=== PATIENT | female | born 1995 | race American Indian/Alaskan Native ===

== ENCOUNTER 2017-08-12 20:19 | Inpatient (IN) | payer MEDICAID ==
[2017-08-12] MEDS ORDERED: Lidocaine 1% 30 ML SDV INJECT PRN (21:31)
[2017-08-12] MEDS ORDERED: Acetaminophen 325 MG Tab PO PRN (21:31)
[2017-08-12] MEDS ORDERED: Lactated Ringers 500 ML IV ONE (21:31)
[2017-08-12] MEDS ORDERED: Misoprostol 400 MCG (4 X 100 MCG TAB) RECTAL PRN (21:31)
[2017-08-12] MEDS ORDERED: Sodium Chloride 0.9% 10 ML Syringe FLUSH PRN (21:31)
[2017-08-12] MEDS ORDERED: Carboprost Tromethamine 250 MCG/1 ML Amp IM PRN (21:31)
[2017-08-12] MEDS ORDERED: Methylergonovine 0.2 MG/1 ML Amp IM PRN (21:31)
[2017-08-12] MEDS ORDERED: Ondansetron 4 MG/2 ML SDV IV PRN (21:31)
[2017-08-12] MEDS: Lactated Ringers 1,000 ML IV SCH (21:50)
[2017-08-12] MEDS: Oxytocin/Normal Saline 30 UNIT/500 ML BAG IV SCH (22:45)
[2017-08-13] MEDS: Lactated Ringers 1,000 ML IV SCH ×3 (07:45→21:21)
[2017-08-13] MEDS: fentaNYL 100 MCG/2 ML SDV IVPUSH PRN ×3 (08:53→10:31)
[2017-08-13] MEDS ORDERED: cefTRIAXone 1 GM AdvVial IV ONE (11:31)
[2017-08-13] MEDS ORDERED: Sodium Chloride 0.9% 50 ML ONE (11:32)
[2017-08-13] MEDS ORDERED: cefTRIAXone 1 GM in Sodium Chloride 0.9% 50 ML IV ONE (12:00)
[2017-08-13] MEDS ORDERED: Oxytocin 10 Units/1 ML SDV IM PRN (12:38)
[2017-08-13] MEDS ORDERED: Benzocaine/Menthol 20%-0.5% Spray 56 GM Canister TOP PRN (12:38)
[2017-08-13] MEDS ORDERED: Simethicone 80 MG Tab.Chew PO PRN (12:38)
[2017-08-13] MEDS ORDERED: Sodium Chloride 0.9% 10 ML Syringe FLUSH PRN (12:38)
[2017-08-13] MEDS ORDERED: Zolpidem 5 MG Tab PO PRN (12:38)
[2017-08-13] MEDS ORDERED: Measles, Mumps & Rubella Vaccine 0.5 ML SDV SUBCUT ONE (12:38)
[2017-08-13] MEDS: Ibuprofen 800 MG Tab PO PRN (19:37)
[2017-08-13] MEDS: Oxytocin/Normal Saline 30 UNIT/500 ML BAG IV SCH (20:32)
[2017-08-14] MEDS: Ibuprofen 800 MG Tab PO PRN ×2 (08:40→20:52)
[2017-08-14] MEDS: Ferrous Sulfate 325 MG Tab PO SCH (08:40)
[2017-08-14] MEDS: Prenatal Multivitamin with Calcium/Folic Acid/Iron Tab PO SCH (08:40)
[2017-08-14] MEDS: Docusate Sodium 100 MG Cap PO PRN ×2 (08:40→20:52)
[2017-08-14] MEDS ORDERED: cefTRIAXone 1 GM in Sodium Chloride 0.9% 50 ML IV ONE (12:00)
[2017-08-15] MEDS: Ibuprofen 800 MG Tab PO PRN (08:55)
[2017-08-15] MEDS: Prenatal Multivitamin with Calcium/Folic Acid/Iron Tab PO SCH (08:55)
[2017-08-15] MEDS: Ferrous Sulfate 325 MG Tab PO SCH (08:55)
[2017-08-15] MEDS: Docusate Sodium 100 MG Cap PO PRN (08:55)
[2017-08-15 09:15] VITALS: BP 116/87
--- NOTE | 2017-08-15 09:25 | HP ---
PATIENT IDENTIFICATION: Marge Guadarrama is a 21-year-old G2, P1-0-0-1, intrauterine at 40-2/7 weeks by 32-6/7 weeks' ultrasound, who presents with headaches. HISTORY OF PRESENT ILLNESS: The patient states she started having a headache this afternoon in frontal portion of her head and down into her face region, rated 5 to 6/10, described as bearable, minimally better with Tylenol upon admission, and is noted to having increasing blood pressures this last week being followed in the clinic. To put this in context, she is GBS negative. She has had some occasional contractions, but nothing increasing in frequency or intensity. Records were called for, reviewed as below, and supplemented by the patient's history. OBSTETRIC HISTORY: 08/01/2016, delivered at 40-1/7 weeks a 4054 g female, spontaneous vaginal delivery. ANTEPARTUM LABS: ABO blood type O positive, negative antibody. Rubella nonimmune. Syphilis antibody is nonreactive. Negative hepatitis B surface antigen, HIV, GC and Chlamydia. Wet prep originally had trichomoniasis that has cleared with treatment back in May, and in June, there was wet prep with fungal and budding yeast with recommendation for [id number] yeast treatment. Last hemoglobin was 10.5 with platelets 165, and GBS was negative in third trimester. ALLERGIES: None. MEDICATIONS: vitamins. PAST MEDICAL/PAST SURGICAL HISTORY: Remarkable for nondisplaced linear fracture of the left fourth digit in the past, depression, Chlamydia in 11/2015 with UTI, and chickenpox as a child. SOCIAL HISTORY: Lives in [place] with grandmother and sister. No pets. Unemployed. Father of baby, Guido Oneill, is involved and healthy without medical problems. She denies any tobacco, alcohol, or drug use. FAMILY HISTORY: Breast cancer in maternal grandmother as well as heart disease. Negative family history of defects, anesthesia problems, bleeding problems, or thyroid disease. REVIEW OF SYSTEMS: The patient denies any visual changes or upper abdominal pain, spotting, bleeding, or leaking. She has had some increasing discharge recently. Otherwise, review of systems fully reviewed and felt to be noncontributory. OBJECTIVE: Vital Signs: Blood pressure 132/94, heart rate 70, temperature 98.2. Recheck blood pressures 120/75, 126/82, and 142/102. Appearance: Female appears her stated age, acting appropriate for age, nontoxic appearance. HEENT: Head is atraumatic. EOMs intact. PERRLA. No scleral icterus. No obvious otorhinorrhea. Mucous membranes are moist. Neck: No obvious tenderness. Lungs: Clear to auscultation bilaterally. No increased work of breathing. Heart: S1 and S2. Regular rate and rhythm. Abdomen: Gravid, Robert's indeterminate, nontender, and nondistended. Bowel sounds positive. No other organomegaly, pulsatile masses, or obvious hernias. No rebound, rigidity, or guarding with monitors applied. Genitourinary: Normal external female genitalia. Normal position and presentation of urethra. Vaginal exam reveals her to be -3 station, 3+ cm, 50% to 60% effaced, vertex suspected. Bag of water felt. Extremities: Trace pedal edema. Deep tendon reflexes are 3 to 4/4 bilaterally and symmetric in lower extremities. Psychiatric: Mood and affect are congruent. Judgment and insight are intact. SKIN: Without cyanosis, clubbing, or jaundice. LABORATORY DATA: Pending are [facility] labs as well as urinalysis and urine protein- creatinine ratio. heart tone baseline has been around the 125 to 130 range and felt to be reactive and reassuring. NST was done and was reactive. ASSESSMENT: 1. Intrauterine at 40-2/7 weeks by 32-6/7 weeks's ultrasound. 2. Gestational hypertension versus preeclampsia with mild headache. I doubt this is a headache related to preeclampsia. She was given some Tylenol with mild relief. We will follow closely. 3. Rubella nonimmune. 4. Group B Streptococcus negative. 5. Trichomoniasis in , treated in 05/2017. 6. History of yeast infection in the third trimester, suspect treated. 7. Maternal anemia history. We will check CBC. 8. 2, para 1-0-0-1. PLAN: The patient has gestational hypertension versus preeclampsia. The patient will be admitted. Start Pitocin augmentation/induction. Consider artificial rupture of membranes in the future and following closely. The patient understands and agrees with the above treatment plan. We will follow for any signs or symptoms of severe preeclampsia including, but not limited to, worsening headache and lab abnormalities that would be concerning for severe preeclampsia, or otherwise. May need magnesium and labetalol, and this was discussed with the patient, but we will follow closely at this point in time. There are no indications for this as she has had a mild headache and her blood pressures are not in the nonsevere range at this point in time. [facility] /[id number]
--- NOTE | 2017-08-15 10:01 | OBOUT ---
DATE: 08/12/2017 DATE AND TIME OF NST: 08/12/2017 at 2110 hours to 2130 hours. REASON FOR NST: 1. Intrauterine at 40-2/7 weeks by 32-6/7 weeks' ultrasound. 2. Gestational hypertension versus preeclampsia with mild headache. 3. Rubella nonimmune. 4. Group B Streptococcus negative. 5. Trichomoniasis in , treated in 05/2017, negative thereafter. 6. History of maternal anemia. 7. 2, para 1-0-0-1. NST INTERPRETATION: During this time period, heart tone baseline is approximately 125 and there are at least two 15 x 15 beat per minute accelerations making this strip reactive. It is also noted to be reassuring. Tocometer reveals potential 2 contractions felt by patient. VITAL SIGNS: Blood pressure 145/101, recheck 127/82. ASSESSMENT: 1. Nonstress test, reactive and reassuring. 2. Tocometer with contractions. PLAN: Please see admit history and physical for further details. The patient has had some elevated blood pressures with history of increasing blood pressures in the past. HELLP labs will be drawn. The patient will be admitted. We will consider induction of labor. Please see further dictation for further details. [facility] /[id number]
--- NOTE | 2017-08-15 10:13 | PN ---
DATE: 08/13/2017 SUBJECTIVE: The patient denies any headaches, visual changes, or upper abdominal pain. She is breathing through her contractions and deferring something for pain at this point in time. OBJECTIVE: Vital Signs: Blood pressure 125/89, recheck 138/71. Gynecologic: Tocometer reveals contractions every 1.5 to 2 minutes. Pitocin is at 10 milliunits/minute. heart tones in the 130s range and felt to be reassuring. Vaginal: Exam reveals her to be 4 cm, 75% effaced, -1 station, vertex suspected, and artificial rupture of membranes done after discussion with the patient yielding copious amounts of clear fluid. ASSESSMENT: Intrauterine at 40 and 2/7 weeks by 32 and 6/7-week ultrasound with gestational hypertension. HELLP labs were essentially negative with a protein-creatinine ratio being 0.13. She had a headache last night upon admission, this has resolved. In addition, she has gestational thrombocytopenia and platelets of 133,000. PLAN: As the patient continues to have cervical dilation, artificial rupture of membranes was done as above and will continue to follow clinically and closely. No signs or symptoms of severe preeclampsia noted at this point in time. [facility] /[id number]
--- NOTE | 2017-08-15 10:19 | PN ---
DATE: 08/14/2017 day #1 status post spontaneous vaginal delivery with retained placenta, requiring bimanual and finger uterine curettage as well as banjo curettage with hemorrhage with an EBL of 1200 mL with prolonged third stage of labor. SUBJECTIVE: The patient has been tolerating POs, ambulating, urinating, passing flatus. Denies any chest pain, shortness of breath, lightheadedness or other signs and symptoms of anemia. OBJECTIVE: Vital Signs: Temp 98, heart rate 67, blood pressure 118/75, respiratory rate 16. I's and O's have been adequate. Lungs: Clear to auscultation bilaterally. Heart: S1 and S2. Regular rate and rhythm. Pelvic: Firm uterus, -1 below umbilicus. Extremities: No peripheral edema. No calf pain. LABORATORY DATA: Today reveal white cell count of 12.5, hemoglobin 6.6, dropped from predelivery hemoglobin of 10.2, and last night's hemoglobin 7.7, platelets 93,000 dropped from 133,000 pre delivery and 101,000 last night. Pending is a CBC at around 1300 hours. ASSESSMENT: 1. day #1 status post spontaneous vaginal delivery with the above complications noted with hemorrhage with EBL 1200 mL with anemia of acute blood loss, hemoglobin dropping down to 6.6. We will continue to follow closely for signs and symptoms of anemia. Recheck CBC at 1300 hours. 2. Gestational thrombocytopenia with platelets decreasing. Did discuss following closely with a CBC as well. The patient denies any significant amount of vaginal bleeding at this point in time and we will follow closely. I did discuss with patient potential need for blood transfusion. Risks, benefits, alternatives, and complications discussed with the patient and we will follow closely as well as with labs to see if she needs a blood transfusion. [facility] /[id number]
--- NOTE | 2017-08-15 10:31 | DEL ---
DATE: 08/13/2017 PREOPERATIVE DIAGNOSES: 1. Intrauterine at 40 and 3/7 weeks by 32 and 6/7 week ultrasound. 2. Gestational hypertension with mild headache. 3. Rubella nonimmune. 4. Group B Streptococcus negative. 5. Trichomoniasis in , treated 06/15/2017. 6. History of yeast infection, suspected and treated. 7. Maternal anemia with hemoglobin 10.2. 8. 2 para 1-0-0-1. 9. Gestational thrombocytopenia with platelets of 132,000. POSTOPERATIVE DIAGNOSES: 1. Intrauterine at 40 and 3/7 weeks by 32 and 6/7 week ultrasound-- delivered. 2. Gestational hypertension with mild headache. 3. Rubella nonimmune. 4. Group B Streptococcus negative. 5. Trichomoniasis in , treated 06/15/2017. 6. History of yeast infection, suspected and treated. 7. Maternal anemia with hemoglobin 10.2. 8. 2 para 1-0-0-1. 9. Gestational thrombocytopenia with platelets of 132,000. 10.Tight nuchal cord reduced sharply after delivery of vertex. 11. hemorrhage with an estimated blood loss of 1200 mL. 12.Prolonged third stage of labor. 13.Retained placenta requiring finger curettage as well as bimanual exam and banjo sharp curettage. PROCEDURES PERFORMED: On 08/12/2017, NST and Pitocin. On 08/13/2017 had Pitocin and artificial rupture membranes, spontaneous vaginal delivery with bimanual and finger and banjo uterine curettage for removal of retained placenta. ANESTHESIA/ANALGESIA: Patient did receive fentanyl during the first stage of labor and during the third stage of labor she has received conscious type of sedation with propofol, please see STORE DELI MANAGER notes. ESTIMATED BLOOD LOSS: 1200 mL. FINDINGS: Female. scores 4 and 8, weighing 8 pounds 2 ounces. (3680 g) with ETIENNE presentation. Tight nuchal cord reduced sharply after delivery of the vertex with subsequent prolonged third stage of labor with retained placenta, requiring curettage with ultrasound present prior to this. During this procedure, Dr. Rosa was called to help further evaluate and manage the patient. She did do a few passes with curettage to confirm placenta removal. SUMMARY OF EVENTS: The patient is a 21-year-old, G2, P1-0-0-1 intrauterine at 40 and 2/7 weeks on 08/12/2017 admitted, underwent NST followed by Pitocin augmentation and subsequently artificial rupture of membranes. She progressed into labor, received fentanyl during the first stage of labor. She was found to be nearing complete. I was called to the room, donned sterile gown and gloves, checked her. She was found to be in the second stage of labor and started pushing with contractions. vertex was then subsequently delivered in an ETIENNE presentation with tight nuchal cord, unable to be reduced bluntly and subsequently this was doubly clamped and cut. Rest of the including anterior and posterior shoulders were delivered without difficulty. Mouth and nares were suctioned and because of minimal cry noted with decreasing tone, patient was brought over to the warmer for resuscitation. After resuscitation ensued, I was called back to the mother. We obtained 10 mL cord bloods for labs. Placenta was then attempted to be delivered with gentle cord traction and fundal massage and despite this, after 20 minutes there was no lengthening of the cord. Therefore, TIM Zacarias was called in for potential bimanual and finger uterine curettage to remove placenta. Once Rell arrived, prolonged third stage of labor was noted. Anesthesia was given with propofol. Subsequently, bimanual exam was done with attempted finger uterine curettage and there was resistance met at the right fundal portion where the placenta was not from the uterine wall. Because of this, there was a potential accreta, percreta. Dr. Rosa was called in as well as the OR crew. Procedure was terminated. At that time, Pitocin was resumed. Bleeding was approximately EBL of 500 mL at that time. Subsequently upon Dr. Rosa's arrival, she consulted with Dr. Henriquez physician executive in [place] who recommended proceeding with attempted finger uterine curettage followed by banjo curettage if need be and if unable to remove the placental membranes with significant bleeding to [facility] the patient to [place] for further evaluation, management, and potential need for hysterectomy. Ultrasound was called. Subsequently procedure was performed where another bimanual was done. Ultrasound was there revealed difficulty planes but no obvious percreta noted with the placenta. Subsequently, more forceful attempt with bimanual finger curettage was done removing most of the placenta. There was 1 minimal ridge of placenta left that was felt. Subsequently banjo curette was called for, and with 2 passes, this ridge was not felt and good uterine cry was noted. Bimanual exam thereafter revealed no obvious evidence of remnants. Subsequently, Dr. Rosa reconfirmed this with a couple passes with a bimanual exam and the cervix was evaluated with weighted speculum and sponge stick. Bleeding decreased significantly thereafter. 4 units of packed red blood cells were called for during this time to be typed and crossmatched. Perineum, vagina, and perirectal areas were examined and noted to have a small first-degree perineal abrasion, nonbleeding, non-repaired after discussion with the patient. Prior to the bimanual exam and curettage, verbal and written consent obtained. I discussed with her and her male partner risks, benefits, alternatives, and complications of procedure. They understood and agreed and wished to proceed. At the current time of dictation, mother and are currently stable at time of dictation. CBC will be drawn at 7 p.m. tonight to follow her blood loss. Symptoms will be followed in terms of need for potential transfusion and 4 units packed red blood cells will be ready. Significant other was updated in terms of findings with the patient. He understands and agrees. We will follow closely. [facility] /[id number] SRINIVASA
[2017-08-15] MEDS ORDERED: Propofol 200 MG/20 ML SDV IV ONE (11:44)
[2017-08-15] MEDS ORDERED: Lactated Ringers 1,000 ML IV ONE (11:44)
[2017-08-15] MEDS ORDERED: Oxytocin/Normal Saline 30 UNIT/500 ML BAG IV ONE (11:44)
--- NOTE | 2017-08-15 13:49 | DISCH ---
ADMIT DATE: 08/12/2017 ADMIT DIAGNOSES: 1. Intrauterine at 40 and 2/7 weeks by 32 and 6/7 week ultrasound. 2. Gestational hypertension with mild headache. 3. Rubella nonimmune. 4. Group B streptococcus negative. 5. Trichomoniasis in , treated 06/15/2017, negative thereafter. 6. History of yeast infection in , treated. 7. Maternal anemia with hemoglobin 10.2 upon admission. 8. Gestational thrombocytopenia with platelets 133,000 upon admission. 9. G2, P1-0-0-1. DISCHARGE DIAGNOSES: 1. Intrauterine at 40 and 2/7 weeks by 32 and 6/7 week ultrasound, delivered. Delivered at 40 and 3/7 weeks. 2. Gestational hypertension with mild headache. 3. Rubella nonimmune. 4. Group B streptococcus negative. 5. Trichomoniasis in , treated 06/15/2017, negative thereafter. 6. History of yeast infection in , treated. 7. Maternal anemia with hemoglobin 10.2 upon admission. 8. Gestational thrombocytopenia with platelets 133,000 upon admission. 9. G2, P1-0-0-1. 10.Tight nuchal cord x1 reduced sharply after delivery of vertex. 11. hemorrhage with EBL 1200 mL. 12.Prolonged third stage of labor. 13.Retained placenta requiring bimanual exam finger and Banjo curettage. 14.Anemia of acute blood loss. Hemoglobin dropping down to 6.5, requiring 2 units of packed red blood cell transfusion on 08/14/2017. PROCEDURE PERFORMED: NST and Pitocin augmentation on 08/12, followed by artificial rupture of membranes on 08/13/2017, and spontaneous vaginal delivery, bimanual and finger and Banjo curettage to control bleeding and because of prolonged third stage of labor with retained placenta. HISTORY OF PRESENT ILLNESS: Please see H and P. SUMMARY HOSPITAL COURSE: The patient was admitted on the above date with the above diagnosis and underwent above procedures, then went on to have a spontaneous vaginal delivery yielding a female scores 4 and 8, weighing 3680 g (8 pounds 2 ounces), tight nuchal cord x1 reduced sharply after delivery of the head. This was complicated by subsequent prolonged third stage of labor. Anesthesia was called for and attempts with bimanual exam and finger uterine curettage were made with difficulty removing placenta. Subsequently, Dr. Rosa was called and she consulted AUTOMOTIVE DIAGNOSTIC TECHNICIAN in [place], and shared decision was made to proceed with more forceful finger uterine curettage followed by Banjo curettage to control bleeding if need be and possible transfer if that did not resolve the placenta not being able to be removed. Subsequently, this was done and successful, please see procedure note for further details. day #1, hemoglobin dropped down to 6.6 and then subsequently to 6.5, and the patient received 2 units of packed red blood cells. Her platelets dropped down to lowest of 88,000 on day #1 as well. Discharge evaluation on day #2, the patient was tolerating p.o., was ambulating, urinating, passing flatus. Labs reveal white cell count 9.6, hemoglobin up to 8.2, platelets a 101,000 and stabilized. PHYSICAL EXAMINATION: Vital signs: Last of vitals temperature 97, heart rate between 82 to 110 blood pressure 116/87, respiratory rate 18. Lungs: Clear to auscultation bilaterally. Heart: S1 and S2. Regular rate and rhythm. Abdomen: Firm uterus around the umbilicus. Extremities: No peripheral edema. No calf pain. The patient denies any chest pain, shortness of breath, lightheadedness. CONDITION ON DISCHARGE COMPARED TO CONDITION ON ADMISSION: Improved. DISCHARGE INSTRUCTIONS: 1. Diet as tolerated. 2. Activity: No lifting more than 20 pounds. No sit-ups, straining, and pelvic rest for the next 6 weeks with immediate return to fertility discussed with the patient. 3. Reasons to return or go to the emergency room were discussed with the patient in detail including, but not limited to, temperature greater than 100.4; foul-smelling discharge; red or hot breasts; increased vaginal bleeding. DISCHARGE MEDICATIONS: 1. [id number] ibuprofen for pain. 2. Iron sulfate 325 b.i.d. x6 weeks. 3. vitamins x6 weeks. FOLLOWUP: Follow up in 6 weeks for . I did discuss the importance of followup and ramifications of not doing so with her infant as well as reasons to return to emergency room in regard to her infant and this will be set up for in 2 days. The patient understands and agrees with the above treatment plan. [facility] /[id number]
--- NOTE | 2017-08-25 14:19 | PCM.PRNOTE ---
- Free Text/Narrative Note: Addendum to anesthesia record. Intraoperative/Procedure record shows pt received 710 mg of propofol IV push for her emergent exam under anesthesia for a retained placenta in room 602. This is a documenting error as she actually received 910 mg of propofol IV push. Medications were given IV push boluses and unable to document as given during emergent procedures. A tally was gathered at the end of the procedure and documented incorrectly.
== END 2017-08-15 11:45 | disposition home or self-care (01) | DRG 767 ==
LOC: DL.OBCHECK 20:19 → DL.OB 21:20 → OBSVTOIN 08-13 10:59
PROVIDERS: ADMIT Family Medicine; ATTEND Family Medicine
PROC: 10E0XZZ Delivery of Products of Conception, External Approach (ICD-10-PCS; principal; 2017-08-13)
PROC: 10D17Z9 Manual Extraction of Products of Conception, Retained, Via Natural or Artificial Opening (ICD-10-PCS; 2017-08-13)
PROC: 10907ZC Drainage of Amniotic Fluid, Therapeutic from Products of Conception, Via Natural or Artificial Opening (ICD-10-PCS; 2017-08-13)
PROC: 30233N1 Transfusion of Nonautologous Red Blood Cells into Peripheral Vein, Percutaneous Approach (ICD-10-PCS; 2017-08-13)
DX: O13.4 Gestational [pregnancy-induced] hypertension without significant proteinuria, complicating childbirth (principal); O99.12 Other diseases of the blood and blood-forming organs and certain disorders involving the immune mechanism complicating childbirth; Z37.0 Single live birth; O72.2 Delayed and secondary postpartum hemorrhage; O69.1XX0 Labor and delivery complicated by cord around neck, with compression, not applicable or unspecified; O99.02 Anemia complicating childbirth; D64.9 Anemia, unspecified; D69.6 Thrombocytopenia, unspecified; Z3A.40 40 weeks gestation of pregnancy
CPT/HCPCS: 00940; 36415; 36430; 59025; 59409; 76857; 81003; 82565; 82570; 83615; 84075; 84156; 84450; 84520; 84550; 85027; 86850; 86900; 86901; 86920; 86922; 90707; A9270-GY; J0696; J2590; J2704; J3010; J7050; J7120; P9016

== ENCOUNTER 2018-05-29 17:41 | Emergency (ER) | payer MEDICAID ==
[2018-05-29 17:55] VITALS: BP 118/60
[2018-05-29] MEDS: Sodium Chloride 0.9% 1,000 ML IV ONE ×2 (18:08→19:10)
[2018-05-29] MEDS: HYDROmorphone 1 MG/ML Syringe IVPUSH ONE (18:09)
[2018-05-29] MEDS: Sodium Chloride 0.9% 10 ML Syringe FLUSH PRN (18:09)
[2018-05-29 18:18] LABS: ANION GAP 11.6; CHLORIDE,CL 99 mmol/L (101-111); SODIUM,NA 134 mmol/L (135-145)
--- NOTE | 2018-05-29 18:54 | EDM.PDOC ---
"Scribed by Charmaine Khan 05/29/18 [id number] for Miguel Cortes MD <Miguel Cortes - Last Filed: 05/29/18 18:49> ED HPI GENERAL MEDICAL PROBLEM - General Chief Complaint: Abdominal Pain Stated Complaint: ER. IN BY AMB Time Seen by Provider: 05/29/18 17:52 Source of Information: Reports: Patient, RN, RN Notes Reviewed History Limitations: Reports: No Limitations - History of Present Illness INITIAL COMMENTS - FREE TEXT/NARRATIVE: Patient presents to ER by [facility] with complaint of left sided abdominal ankle pain that began last night. She denies fevers or chills. She admits to diarrhea but does not know if it related to the pain because the diarrhea has come and gone for several days. She states the pain became worse last night so she used IV methamphetamine to try to help the pain. Onset Date: 05/28/18 Duration: Getting Worse Location: Reports: Abdomen Quality: Reports: Ache Severity: Severe Improves with: Reports: None Worsens with: Reports: None Associated Symptoms: Reports: No Other Symptoms Left Lower Abdomen Pain Score (Numeric/FACES): 10 - Related Data Allergies Allergy/AdvReac Type Severity Reaction Status Date / Time No Known Allergies Allergy Verified 05/29/18 17:43 Home Meds: Home Meds . [No Known Home Meds] 05/29/18 [History] Past Medical History - Past Health History Medical/Surgical History: Denies Medical/Surgical History HEENT History: Reports: None Cardiovascular History: Reports: None Respiratory History: Reports: None Gastrointestinal History: Reports: None Genitourinary History: Reports: STD, UTI, Recurrent Other Genitourinary History: Treated 11/2015 [employer]GRAM LEAD History: Reports: Musculoskeletal History: Reports: Other (See Below) Other Musculoskeletal History: hx finger fracture left 4th digit Neurological History: Reports: None Psychiatric History: Reports: Depression Endocrine/Metabolic History: Reports: None Hematologic History: Reports: None Immunologic History: Reports: None Oncologic (Cancer) History: Reports: None Dermatologic History: Reports: Other (See Below) Other Dermatologic History: Tattoo shoulder - Infectious Disease History Infectious Disease History: Reports: None - Past Surgical History Head Surgeries/Procedures: Reports: None HEENT Surgical History: Reports: None Cardiovascular Surgical History: Reports: None Respiratory Surgical History: Reports: None GI Surgical History: Reports: None Endocrine Surgical History: Reports: None Neurological Surgical History: Reports: None Oncologic Surgical History: Reports: None Social & Family History - Family History Family Medical History: Noncontributory - Tobacco Use Smoking Status *Q: Current Every Day Smoker Years of Tobacco use: 3 Packs/Tins Daily: 1 - Caffeine Use Caffeine Use: Reports: Coffee, Energy Drinks, Soda - Recreational Drug Use Recreational Drug Use: No ED ROS GENERAL - Review of Systems Review Of Systems: ROS reveals no pertinent complaints other than HPI. ED EXAM, GI/ABD - Physical Exam Exam: See Below Exam Limited By: Other (substance) General Appearance: Anxious, Thin, Other (aggitated, hyperactive, and tearful. ) Eyes: Bilateral: Normal Appearance Nose: Normal Inspection, Normal Mucosa, No Blood Throat/Mouth: Normal Lips, Normal Voice, No Airway Compromise, Other (extensive dental decay. Dry oral membranes.) Head: Atraumatic, Normocephalic Neck: Normal Inspection, Supple, Non-Tender, Full Range of Motion Respiratory/Chest: No Respiratory Distress, Lungs Clear, Normal Breath Sounds, No Accessory Muscle Use, Chest Non-Tender Cardiovascular: Regular Rate, Rhythm, Tachycardia GI/Abdominal Exam: Normal Bowel Sounds, Soft, No Distention, No Mass, Other ( LUQ and LQ abdominal tenderness to palpation. No peritoneal signs. ). No: Guarding, Rigid, Rebound (Female) Exam: Deferred Rectal (Female) Exam: Deferred Back Exam: Full Range of Motion, CVA Tenderness (L). No: CVA Tenderness (R), Vertebral Tenderness Extremities: Normal Inspection, Normal Range of Motion, Non-Tender, Normal Capillary Refill, No Pedal Edema Neurological: Alert, Oriented, CN II-XII Intact, Normal Cognition, Normal Gait, No Motor/Sensory Deficits Psychiatric: Tearful, Other (aggitated, behavior consistent with stimulant intoxication) Skin Exam: Warm, Dry, Normal Color, No Rash, Other (needle track hi bilateral upper extremities.) Course - Vital Signs Last Recorded V/S: Last Vital Signs Temp 97.4 F 05/29/18 17:54 Pulse 120 H 05/29/18 17:54 Resp 19 05/29/18 17:54 BP 118/60 05/29/18 17:54 Pulse Ox 100 05/29/18 17:54 - Orders/Labs/Meds Orders: Active Orders 24 hr Category Date Time Status Peripheral IV Care [RC] . DIRECTED Care 05/29/18 17:59 Active Abdomen Pelvis wo Cont [CT] Urgent Exams 05/29/18 18:47 Taken DRUG SCREEN URINE BIORAD [URCHEM] Stat Lab 05/29/18 18:46 Ordered UA W/MICROSCOPIC [URIN] Stat Lab 05/29/18 18:46 Ordered Sodium Chloride 0.9% [Saline Flush] Med 05/29/18 17:58 Active 10 ml FLUSH ASDIRECTED PRN Peripheral IV Insertion Adult [OM.PC] Stat Oth 05/29/18 17:58 Ordered Medication Orders Sodium Chloride (Saline Flush) 10 ml FLUSH ASDIRECTED PRN PRN Reason: Keep Vein Open Last Admin: 05/29/18 18:09 Dose: 10 ml Labs: Laboratory Tests 05/29/18 05/29/18 05/29/18 Range/Units 17:48 17:48 17:48 WBC 14.9 H (5.0-10.0) 10^3/uL RBC 3.61 L (4.2-5.4) 10^6/uL Hgb 10.4 L D (12.0-16.0) g/dL Hct 32.4 L (37.0-47.0) % MCV 89.8 (80-100) fL MCH 28.8 (27.0-34.0) pg MCHC 32.1 L (33.0-35.0) g/dL Plt Count 280 D (150-450) 10^3/uL Neut % (Auto) 81.7 H (42.2-75.2) % Lymph % (Auto) 10.5 L (20.5-50.1) % [place] % (Auto) 7.0 (2-8) % Eos % (Auto) 0.7 L (1.0-3.0) % Baso % (Auto) 0.1 (0.0-1.0) % Sodium 134 L (135-145) mmol/L Potassium 3.6 (3.6-5.0) mmol/L Chloride 99 L (101-111) mmol/L Carbon Dioxide 27.0 (21.0-31.0) mmol/L Anion Gap 11.6 BUN 16 (7-18) mg/dL Creatinine 0.9 (0.6-1.3) mg/dL Est Cr Clr Drug Dosing 89.72 mL/min Estimated GFR (MDRD) > 60 BUN/Creatinine Ratio 17.77 Glucose 83 (74-105) mg/dL Calcium 8.6 (8.4-10.2) mg/dl Total Bilirubin 0.7 (0.2-1.0) mg/dL AST 17 (10-42) IU/L ALT 12 (10-60) IU/L Alkaline Phosphatase 74 (42-121) IU/L Total Protein 7.4 (6.7-8.2) g/dl Albumin 3.6 (3.2-5.5) g/dl Globulin 3.8 Albumin/Globulin Ratio 0.95 Amylase 34 (28-100) U/L Lipase 19 L (22-51) U/L HCG, Qual Negative Urine Color (YELLOW) Urine Appearance (CLEAR) Urine pH (5.0-9.0) Ur Specific [place] (1.005-1.030) Urine Protein (NEGATIVE) Urine Glucose (UA) (NEGATIVE) Urine Ketones (NEGATIVE) Urine Occult Blood (NEGATIVE) Urine Nitrite (NEGATIVE) Urine Bilirubin (NEGATIVE) Urine Urobilinogen (0.2-1.0) mg/dL Ur Leukocyte Esterase (NEGATIVE) Urine RBC /HPF Urine WBC (0-5/HPF) /HPF Ur Epithelial Cells /HPF Amorphous Sediment (0/HPF) /HPF Urine Bacteria (0-FEW/HPF) /HPF Urine Mucus /LPF Urine Opiates Screen (NEGATIVE) Ur Oxycodone Screen (NEGATIVE) Urine Methadone Screen (NEGATIVE) Ur Barbiturates Screen (NEGATIVE) U Tricyclic Antidepress (NEGATIVE) Ur Phencyclidine Scrn (NEGATIVE) Ur Amphetamine Screen (NEGATIVE) U Methamphetamines Scrn (NEGATIVE) Urine MDMA Screen (NEGATIVE) U Benzodiazepines Scrn (NEGATIVE) Urine Cocaine Screen (NEGATIVE) U Marijuana (THC) Screen (NEGATIVE) Ethyl Alcohol < 5 mg/dL 05/29/18 05/29/18 Range/Units 18:46 18:46 WBC (5.0-10.0) 10^3/uL RBC (4.2-5.4) 10^6/uL Hgb (12.0-16.0) g/dL Hct (37.0-47.0) % MCV (80-100) fL MCH (27.0-34.0) pg MCHC (33.0-35.0) g/dL Plt Count (150-450) 10^3/uL Neut % (Auto) (42.2-75.2) % Lymph % (Auto) (20.5-50.1) % [place] % (Auto) (2-8) % Eos % (Auto) (1.0-3.0) % Baso % (Auto) (0.0-1.0) % Sodium (135-145) mmol/L Potassium (3.6-5.0) mmol/L Chloride (101-111) mmol/L Carbon Dioxide (21.0-31.0) mmol/L Anion Gap BUN (7-18) mg/dL Creatinine (0.6-1.3) mg/dL Est Cr Clr Drug Dosing mL/min Estimated GFR (MDRD) BUN/Creatinine Ratio Glucose (74-105) mg/dL Calcium (8.4-10.2) mg/dl Total Bilirubin (0.2-1.0) mg/dL AST (10-42) IU/L ALT (10-60) IU/L Alkaline Phosphatase (42-121) IU/L Total Protein (6.7-8.2) g/dl Albumin (3.2-5.5) g/dl Globulin Albumin/Globulin Ratio Amylase (28-100) U/L Lipase (22-51) U/L HCG, Qual Urine Color Dark yellow (YELLOW) Urine Appearance Turbid (CLEAR) Urine pH 7.5 (5.0-9.0) Ur Specific [place] 1.015 (1.005-1.030) Urine Protein 30 H (NEGATIVE) Urine Glucose (UA) Negative (NEGATIVE) Urine Ketones 15 H (NEGATIVE) Urine Occult Blood Small H (NEGATIVE) Urine Nitrite Positive H (NEGATIVE) Urine Bilirubin Negative (NEGATIVE) Urine Urobilinogen 2.0 H (0.2-1.0) mg/dL Ur Leukocyte Esterase Small H (NEGATIVE) Urine RBC 5-10 H /HPF Urine WBC 10-20 H (0-5/HPF) /HPF Ur Epithelial Cells Moderate H /HPF Amorphous Sediment Few (0/HPF) /HPF Urine Bacteria Many H (0-FEW/HPF) /HPF Urine Mucus Few H /LPF Urine Opiates Screen Negative (NEGATIVE) Ur Oxycodone Screen Negative (NEGATIVE) Urine Methadone Screen Negative (NEGATIVE) Ur Barbiturates Screen Negative (NEGATIVE) U Tricyclic Antidepress Negative (NEGATIVE) Ur Phencyclidine Scrn Negative (NEGATIVE) Ur Amphetamine Screen Positive H (NEGATIVE) U Methamphetamines Scrn Positive H (NEGATIVE) Urine MDMA Screen Negative (NEGATIVE) U Benzodiazepines Scrn Negative (NEGATIVE) Urine Cocaine Screen Negative (NEGATIVE) U Marijuana (THC) Screen Positive H (NEGATIVE) Ethyl Alcohol mg/dL Rapid strep: Negative. Meds: Medications Generic Name Dose Route Start Last Admin Trade Name Freq PRN Reason Stop Dose Admin Sodium Chloride 10 ml 05/29/18 17:58 05/29/18 18:09 Saline Flush FLUSH 10 ml ASDIRECTED PRN Administration Keep Vein Open Discontinued Medications Generic Name Dose Route Start Last Admin Trade Name Freq PRN Reason Stop Dose Admin Ceftriaxone Sodium 2 gm 05/29/18 20:14 Rocephin IVPUSH 05/29/18 20:15 ONETIME ONE Hydromorphone HCl 1 mg 05/29/18 18:00 05/29/18 18:09 Dilaudid IVPUSH 05/29/18 18:01 1 mg ONETIME ONE Administration Sodium Chloride 1,000 mls @ 999 mls/hr 05/29/18 18:00 05/29/18 18:08 Normal Saline IV 05/29/18 19:00 999 mls/hr .BOLUS ONE Administration Sodium Chloride 1,000 mls @ 999 mls/hr 05/29/18 18:47 05/29/18 19:10 Normal Saline IV 05/29/18 19:47 999 mls/hr .BOLUS ONE Administration Metoclopramide HCl 10 mg 05/29/18 20:13 Reglan IVPUSH 05/29/18 20:14 ONETIME ONE - Re-Assessments/Exams Free Text/Narrative Re-Assessment/Exam: 05/29/18 18:50 Care of pt transferred to [facility] [place] at 1900HR shift change with UA and CT pending. Departure - Departure Disposition: Home, Self-Care 01 Clinical Impression: Left lower lobe pulmonary infiltrate UTI (urinary tract infection) Qualifiers: Urinary tract infection type: site unspecified Hematuria presence: with hematuria Qualified Code(s): N39.0 - Urinary tract infection, site not specified ; R31.9 - Hematuria, unspecified - Discharge Information Instructions: Urinary Tract Infection, Adult, [id number], Stimulant Use Disorder-Methamphetamines Forms: ED Department Discharge Additional Instructions: stop using meth increase fluid intake cipro 500mg one twice daily for one week tylenol 650 or ibuprofen 600mg eery 6 hours as needed for discomfort follow up symptoms worsen <Surjit Richards - Last Filed: 05/29/18 20:21> Course - Radiology Interpretation Free Text/Narrative:: Name: ARLINE PAYTON Age: 22Years F Date: 05/29/2018 SSN: -- : [id number] Study: CT ABDOMEN/PELVIS WO Requesting Physician: SURJIT RICHARDS Images: 365 Addl Studies: Provided Clinical History: Contrast: Without Contrast Medium: Contrast Amount: Contrast Method: Page 1 of 2 EXAM: CT Abdomen and Pelvis Without Intravenous Contrast CLINICAL HISTORY: 22 years old, female; Pain; Abdominal pain; Flank; Left TECHNIQUE: Axial computed tomography images of the abdomen and pelvis without intravenous contrast. All CT scans at this facility use at least one of these dose optimization techniques: automated exposure control; mA and/or kV adjustment per patient size (includes targeted exams where dose is matched to clinical indication); or iterative reconstruction. Coronal and sagittal reformatted images were created and reviewed. COMPARISON: No relevant prior studies available. FINDINGS: Lung bases: Patchy nodular infiltrate in left lower lobe. ABDOMEN: Liver: Unremarkable. Gallbladder and bile ducts: Unremarkable. No calcified stones. No ductal dilation. Pancreas: Unremarkable. No ductal dilation. Spleen: Unremarkable. No splenomegaly. Adrenals: Unremarkable. No mass. Kidneys and ureters: Unremarkable. No obstructing stones. No hydronephrosis. Stomach and bowel: Unremarkable. No obstruction. No mucosal thickening. PELVIS: Appendix: No findings to suggest acute appendicitis. Bladder: Unremarkable. No stones. ARLINE PAYTON | Final Radiology Report CONFIDENTIALITY STATEMENT This report is intended only for use by the referring physician, and only in accordance with law. If you received this in error, call [phone]. Page 2 of 2 Reproductive: Unremarkable as visualized. ABDOMEN and PELVIS: Intraperitoneal space: Small amount of pelvic ascites. No free air. Bones/joints: No acute fracture. No dislocation. Soft tissues: Unremarkable. Vasculature: Unremarkable. No abdominal aortic aneurysm. Lymph nodes: Shotty lymph nodes in the retroperitoneum measuring subcentimeter in short axis although there are numerous lymph nodes. IMPRESSION: Patchy nodular infiltrate in left lower lobe. Small amount of pelvic ascites. Thank you for allowing us to participate in the care of your patient. Dictated and Authenticated by: Chung Bergeron MD 05/29/2018 7:58 PM Central Time ([place] & [place]) Departure - Departure Time of Disposition: 20:16 Condition: Good - Discharge Information *PRESCRIPTION DRUG MONITORING PROGRAM REVIEWED*: No I have read and agree with the documentation that has been completed regarding this visit. By signing this record, I attest that the documentation was completed in my physical presence and is an accurate record of the encounter."
[2018-05-29] MEDS: Metoclopramide 10 MG/2 ML SDV IVPUSH ONE (20:31)
[2018-05-29] MEDS: cefTRIAXone 2 GM Vial IVPUSH ONE (20:32)
== END 2018-05-29 20:40 | disposition home or self-care (01) ==
LOC: DL.ED 17:41
DX: N39.0 Urinary tract infection, site not specified (principal); R91.8 Other nonspecific abnormal finding of lung field; F17.210 Nicotine dependence, cigarettes, uncomplicated
CPT/HCPCS: 36415; 74176; 80053; 80305-QW; 81001; 82150; 83690; 84703; 85025; 96361; 96374; 96375; 99284; G0480; J0696; J1170; J2765; J7030; J7050

== ENCOUNTER 2019-11-23 11:45 | Inpatient (IN) | payer MEDICAID ==
[2019-11-23] MEDS ORDERED: Tranexamic Acid 1,000 MG in Sodium Chloride 0.9% 100 ML IV PRN (12:37)
[2019-11-23] MEDS ORDERED: Carboprost Tromethamine 250 MCG/1 ML Amp IM PRN (12:37)
[2019-11-23] MEDS ORDERED: Lactated Ringers 1,000 ML IV ONE (12:37)
[2019-11-23] MEDS ORDERED: Sodium Chloride 0.9% 10 ML Syringe FLUSH PRN ×2 (12:37→16:10)
[2019-11-23] MEDS ORDERED: Methylergonovine 0.2 MG/1 ML Amp IM PRN (12:37)
[2019-11-23] MEDS ORDERED: Acetaminophen 325 MG Tab PO PRN (12:37)
[2019-11-23] MEDS ORDERED: Lidocaine 1% 30 ML SDV INJECT PRN (12:37)
[2019-11-23] MEDS ORDERED: Ondansetron 4 MG/2 ML SDV IVPUSH PRN (12:37)
[2019-11-23] MEDS ORDERED: Misoprostol 400 MCG (4 X 100 MCG TAB) RECTAL PRN (12:37)
[2019-11-23] MEDS ORDERED: Oxytocin/Normal Saline 30 UNIT/500 ML BAG IV SCH (12:45)
[2019-11-23] MEDS ORDERED: Lactated Ringers 1,000 ML IV SCH (12:45)
[2019-11-23] MEDS ORDERED: Penicillin G Potassium 5 MILLUNITS in Sodium Chloride 0.9% 100 ML IV ONE (12:45)
[2019-11-23] MEDS ORDERED: fentaNYL 100 MCG/2 ML SDV IVPUSH PRN (12:53)
--- NOTE | 2019-11-23 14:31 | OBOUT ---
DATE: 11/23/2019 TIME: 12 o'clock to 12:20. REASON FOR NST: 1. Intrauterine at 39 and 1/7 weeks, confirmed with 22 and 3/7 weeks ultrasound. 2. Active labor with contractions and cervical change. 3. GBS positive. 4. Hep C positive. 5. History of drug use. 6. Rubella immune. 7. G3, P2-0-0-2. 8. History of hemorrhage with retained placenta. NST INTERPRETATION: During this time period, heart tone at baseline is approximately 120, and there are at least two 15 x 15 beats per minute accelerations, making this strip reactive. It is also noted to be reassuring. Tocometer reveals potential of 2 contractions felt by the patient during this time. ASSESSMENT: 1. Nonstress test, reactive and reassuring. 2. Tocometer with contractions. PLAN: Please see admit history and physical for further details. Shortly after this was performed, vaginal exam revealed her to be 5+ cm, 80% to 90% effaced, - 1 station, vertex suspected with bulging bag of water and stat penicillin was called for due to the GBS positive status. We will follow clinically and closely at this point in time. [facility] /[id number]
[2019-11-23] MEDS ORDERED: fentaNYL 100 MCG/2 ML SDV ONE (14:57)
[2019-11-23] MEDS ORDERED: Sodium Bicarbonate 4.2% 2.5 MEQ/5 ML SDV ONE (14:58)
--- NOTE | 2019-11-23 15:19 | PCM.SN ---
- Free Text/Narrative Note: Intrathecal.Sitting position,sterile prep and drape.1% lidociane w bicarb for skinwheal to L2 L3 interspace, introducer, 24 ga pencan x 1.Pos CSF, neg heme, neg parasthesia. 20 mcg pf sufenta, 30 mcg pf fentanyl, 0.4 ml pf NS and 6 mg of 0.75% pf marcaine injected after CSF aspiration. Pt to L lateral position. Procedure time 1455 to 1525
[2019-11-23] MEDS ORDERED: Zolpidem 5 MG Tab PO PRN (16:10)
[2019-11-23] MEDS ORDERED: Benzocaine/Menthol 20%-0.5% Spray 56 GM Canister TOP PRN (16:10)
[2019-11-23] MEDS ORDERED: Simethicone 80 MG Tab.Chew PO PRN (16:10)
[2019-11-23] MEDS ORDERED: Oxytocin 10 Units/1 ML SDV IM PRN (16:10)
[2019-11-23] MEDS ORDERED: Penicillin G Potassium 3 MILLUNITS in Sodium Chloride 0.9% 100 ML IV SCH (17:00)
[2019-11-23] MEDS: Ibuprofen 800 MG Tab PO PRN (20:49)
[2019-11-23] MEDS: Docusate Sodium 100 MG Cap PO PRN (20:49)
[2019-11-24] MEDS: Docusate Sodium 100 MG Cap PO PRN ×2 (08:50→20:33)
[2019-11-24] MEDS: Ibuprofen 800 MG Tab PO PRN ×2 (08:50→17:44)
[2019-11-24] MEDS: Prenatal Multivitamin with Calcium/Folic Acid/Iron Tab PO SCH (08:50)
--- NOTE | 2019-11-24 10:19 | PCM.PNPP ---
- General Info Date of Service: 11/24/19 Subjective Update: PPD#1. Patient is doing well. She reports some abdominal cramping and back pain that are responding well to Tylenol and ibuprofen. Ambulating without dizziness or lightheadedness. Tolerating a general diet. Urinating and passing gas. No fevers, chills, nausea or vomiting. She is bottlefeeding. No concerns per patient or per nursing staff. Review of labs showed patient does have a UTI. Functional Status: Reports: Pain Controlled, Tolerating Diet, Ambulating, Urinating - Review of Systems General: Reports: Fatigue HEENT: Reports: No Symptoms Pulmonary: Reports: No Symptoms Cardiovascular: Reports: No Symptoms Gastrointestinal: Reports: Abdominal Pain (cramping) Genitourinary: Reports: No Symptoms Musculoskeletal: Reports: Back Pain Skin: Reports: No Symptoms Neurological: Reports: No Symptoms - General Info Date of Service: 11/24/19 - Patient Data Vital Signs - Most Recent: Last Vital Signs Temp 36.8 C 11/24/19 08:00 Pulse 55 L 11/24/19 08:00 Resp 16 11/24/19 08:00 BP 92/43 L 11/24/19 08:00 Pulse Ox 98 11/24/19 08:00 Weight - Most Recent: 92.079 kg I&O - Last 24 Hours: Intake & Output 11/23/19 11/24/19 11/24/19 22:59 06:59 14:59 Intake Total 2600 Output Total 1000 Balance 2600 -1000 Lab Results - Last 24 Hours: Laboratory Results - last 24 hr 11/23/19 11/23/19 11/23/19 Range/Units 11:55 11:55 12:50 WBC 7.9 (5.0-10.0) 10^3/uL RBC 3.91 L (4.2-5.4) 10^6/uL Hgb 12.0 D (12.0-16.0) g/dL Hct 36.5 L (37.0-47.0) % MCV 93.4 D (80-100) fL MCH 30.7 (27.0-34.0) pg MCHC 32.9 L (33.0-35.0) g/dL Plt Count 164 D (150-450) 10^3/uL Urine Color Yellow (YELLOW) Urine Appearance Cloudy (CLEAR) Urine pH 5.5 (5.0-9.0) Ur Specific [place] 1.020 (1.005-1.030) Urine Protein Negative (NEGATIVE) Urine Glucose (UA) Negative (NEGATIVE) Urine Ketones Negative (NEGATIVE) Urine Occult Blood Moderate H (NEGATIVE) Urine Nitrite Negative (NEGATIVE) Urine Bilirubin Negative (NEGATIVE) Urine Urobilinogen 1.0 (0.2-1.0) mg/dL Ur Leukocyte Esterase Moderate H (NEGATIVE) Urine RBC 10-20 H /HPF Urine WBC 20-30 H (0-5/HPF) /HPF Ur Epithelial Cells Moderate H (NOT SEEN) /HPF Amorphous Sediment Few (NOT SEEN) /HPF Urine Bacteria Moderate H (0-FEW/HPF) /HPF Urine Mucus Moderate H (NOT SEEN) /LPF Urine Opiates Screen Negative (NEGATIVE) Ur Oxycodone Screen Negative (NEGATIVE) Urine Methadone Screen Negative (NEGATIVE) Ur Barbiturates Screen Negative (NEGATIVE) U Tricyclic Antidepress Negative (NEGATIVE) Ur Phencyclidine Scrn Negative (NEGATIVE) Ur Amphetamine Screen Negative (NEGATIVE) U Methamphetamines Scrn Negative (NEGATIVE) Urine MDMA Screen Negative (NEGATIVE) U Benzodiazepines Scrn Negative (NEGATIVE) Urine Cocaine Screen Negative (NEGATIVE) U Marijuana (THC) Screen Negative (NEGATIVE) 11/24/19 Range/Units 06:15 WBC 10.6 H (5.0-10.0) 10^3/uL RBC 3.50 L (4.2-5.4) 10^6/uL Hgb 10.9 L (12.0-16.0) g/dL Hct 32.8 L (37.0-47.0) % MCV 93.7 (80-100) fL MCH 31.1 (27.0-34.0) pg MCHC 33.2 (33.0-35.0) g/dL Plt Count 151 (150-450) 10^3/uL Urine Color (YELLOW) Urine Appearance (CLEAR) Urine pH (5.0-9.0) Ur Specific [place] (1.005-1.030) Urine Protein (NEGATIVE) Urine Glucose (UA) (NEGATIVE) Urine Ketones (NEGATIVE) Urine Occult Blood (NEGATIVE) Urine Nitrite (NEGATIVE) Urine Bilirubin (NEGATIVE) Urine Urobilinogen (0.2-1.0) mg/dL Ur Leukocyte Esterase (NEGATIVE) Urine RBC /HPF Urine WBC (0-5/HPF) /HPF Ur Epithelial Cells (NOT SEEN) /HPF Amorphous Sediment (NOT SEEN) /HPF Urine Bacteria (0-FEW/HPF) /HPF Urine Mucus (NOT SEEN) /LPF Urine Opiates Screen (NEGATIVE) Ur Oxycodone Screen (NEGATIVE) Urine Methadone Screen (NEGATIVE) Ur Barbiturates Screen (NEGATIVE) U Tricyclic Antidepress (NEGATIVE) Ur Phencyclidine Scrn (NEGATIVE) Ur Amphetamine Screen (NEGATIVE) U Methamphetamines Scrn (NEGATIVE) Urine MDMA Screen (NEGATIVE) U Benzodiazepines Scrn (NEGATIVE) Urine Cocaine Screen (NEGATIVE) U Marijuana (THC) Screen (NEGATIVE) Med Orders - Current: Current Medications Acetaminophen (Tylenol) 650 mg PO Q4H PRN PRN Reason: Pain (Mild 1-3) and fever Benzocaine/Menthol (Dermoplast Pain Relief [place]) 0 gm TOP Q4H PRN PRN Reason: Perineal comfort measures Carboprost Tromethamine (Hemabate Ds) 250 mcg IM ASDIRECTED PRN PRN Reason: HEMORRHAGE Docusate Sodium (Colace) 100 mg PO BID PRN PRN Reason: Constipation Last Admin: 11/24/19 08:50 Dose: 100 mg Fentanyl (Sublimaze) 50 mcg IVPUSH ONETIME PRN PRN Reason: Abdominal Pain Last Admin: 11/23/19 13:34 Dose: 50 mcg Lactated Ringer's (Ringers, Lactated) 1,000 mls @ 125 mls/hr IV ASDIRECTED SOFIA Last Infusion: 11/23/19 18:30 Dose: 0 mls/hr Oxytocin/Sodium Chloride (Pitocin In Ns 30 Unit/500 Ml) 30 unit in 500 mls @ 2 mls/hr IV TITRATE SOFIA; Protocol Last Titration: 11/23/19 18:32 Dose: 0 munits/min, 0 mls/hr Tranexamic Acid 1,000 mg/ (Sodium Chloride) 110 mls @ 660 mls/hr IV ONETIME PRN PRN Reason: Bleeding Ibuprofen (Motrin) 800 mg PO Q8H PRN PRN Reason: Mild Pain or Fever Last Admin: 11/24/19 08:50 Dose: 800 mg Lidocaine HCl (Xylocaine-Mpf 1%) 30 ml INJECT ASDIRECTED PRN PRN Reason: Perineal Repair Methylergonovine Maleate (Methergine) 0.2 mg IM ASDIRECTED PRN PRN Reason: Hemorrhage Misoprostol (Cytotec) 800 mcg RECTAL ASDIRECTED PRN PRN Reason: Hemorrhage Ondansetron HCl (Zofran) 4 mg IVPUSH Q4H PRN PRN Reason: Nausea/Vomiting Last Admin: 11/23/19 14:58 Dose: 4 mg Oxytocin (Pitocin) 10 unit IM ONETIME PRN PRN Reason: Bleeding Prenat Multivit/Procedures Analyst/Iron/Folic Ac ( Plus Iron) 1 each PO DAILY [facility] Last Admin: 11/24/19 08:50 Dose: 1 each Simethicone (Simethicone) 80 mg PO Q4H PRN PRN Reason: Gas Sodium Chloride (Saline Flush) 10 ml FLUSH ASDIRECTED PRN PRN Reason: Keep Vein Open Sodium Chloride (Saline Flush) 10 ml FLUSH ASDIRECTED PRN PRN Reason: Keep Vein Open Zolpidem Tartrate (Ambien) 5 mg PO BEDTIME PRN PRN Reason: Insomnia Discontinued Medications Fentanyl (Sublimaze) Confirm Administered Dose 100 mcg .ROUTE .STK-MED ONE Stop: 11/23/19 14:58 Last Admin: 11/23/19 17:07 Dose: Not Given Lactated Ringer's (Ringers, Lactated) 1,000 mls @ 500 mls/hr IV BOLUS ONE Stop: 11/23/19 14:36 Last Admin: 11/23/19 12:45 Dose: 999 mls/hr Penicillin G Potassium 5 (millunits/ Sodium Chloride) 100 mls @ 200 mls/hr IV ONETIME ONE Stop: 11/23/19 13:14 Last Admin: 11/23/19 12:55 Dose: 200 mls/hr Penicillin G Potassium 3 (millunits/ Sodium Chloride) 100 mls @ 200 mls/hr IV Q4H [facility] Last Admin: 11/23/19 16:11 Dose: 200 mls/hr Sodium Bicarbonate (Sodium Bicarbonate 4.2%) Confirm Administered Dose 2.5 meq .ROUTE .STK-MED ONE Stop: 11/23/19 14:59 Last Admin: 11/23/19 17:08 Dose: Not Given Sufentanil Citrate (Sufenta) Confirm Administered Dose 50 mcg .ROUTE .STK-MED ONE Stop: 11/23/19 14:59 Last Admin: 11/23/19 17:08 Dose: Not Given - Infant Interaction Disposition, : [place] at Bedside Infant Interaction: Holding Infant Feeding: Bottle Fed Support Person: Other (see below) - Recovery Exam Fundal Tone: Firm Fundal Level: 1 Fingerbreadths Below Umbilicus Fundal Placement: Midline Lochia Amount: Small Lochia Color: Rubra/Red Perineum Description: Intact, Minimal Bruising/Swelling Episiotomy/Laceration: None Bladder Status: Voiding Urinary Elimination: Voided - Exam General: Alert, Oriented Lungs: Clear to Auscultation, Normal Respiratory Effort Cardiovascular: Regular Rate, Regular Rhythm, No Murmurs GI/Abdominal Exam: Soft Extremities: No Pedal Edema Skin: Warm, Dry, Intact - Problem List & Annotations (1) care SNOMED Code(s): 379639359, 83191413, 489299347, 352874794 Code(s): Z34.90 - ENCNTR FOR SUPRVSN OF NORMAL , UNSP, UNSP TRIMESTER Status: Acute Current Visit: Yes (2) Drug use affecting SNOMED Code(s): 87251670, 486146987 Code(s): O99.320 - DRUG USE COMPLICATING , UNSPECIFIED TRIMESTER Status: Acute Current Visit: Yes (3) (normal spontaneous vaginal delivery) SNOMED Code(s): 53358941, 255598602 Code(s): O80 - ENCOUNTER FOR FULL-TERM UNCOMPLICATED DELIVERY Status: Acute Current Visit: Yes (4) UTI (urinary tract infection) SNOMED Code(s): 23650491 Code(s): N39.0 - URINARY TRACT INFECTION, SITE NOT SPECIFIED Status: Acute Current Visit: No Qualifiers: Urinary tract infection type: site unspecified Hematuria presence: with hematuria Qualified Code(s): N39.0 - Urinary tract infection, site not specified; R31.9 - Hematuria, unspecified - Problem List Review Problem List Initiated/Reviewed/Updated: Yes - My Orders Last 24 Hours: My Active Orders 11/24/19 18:00 Nitrofurantoin [place]/Macrocryst [Macrobid] 100 mg PO BIDMEALS - Assessment Assessment:: 24-year-old PPD#1 status post at 39w1d - Plan Plan:: 1. Continue routine cares 2. Bottle feedings 3. For UTI, will treat with Macrobid 100 mg BID x 7 days 4. Anticipate discharge tomorrow. Padmini Garza MD
[2019-11-24] MEDS: Nitrofurantoin Monohydrate/Macrocrystalline 100 MG Cap PO SCH ×2 (12:46→17:44)
[2019-11-24] MEDS ORDERED: Nitrofurantoin Monohydrate/Macrocrystalline 100 MG Cap PO SCH (18:00)
[2019-11-25] MEDS: Nitrofurantoin Monohydrate/Macrocrystalline 100 MG Cap PO SCH (08:50)
[2019-11-25] MEDS: Prenatal Multivitamin with Calcium/Folic Acid/Iron Tab PO SCH (08:50)
[2019-11-25] MEDS: Docusate Sodium 100 MG Cap PO PRN (08:50)
[2019-11-25] MEDS: Ibuprofen 800 MG Tab PO PRN (08:50)
[2019-11-25 09:06] VITALS: BP 110/58; PULSE 73
--- NOTE | 2019-11-25 11:50 | PCM.DCSUM1 ---
Discharge Summary - Hospital Course Free Text/Narrative:: 24-year-old PPD#2 s/p at 39w1d Diagnosis: Stroke: No - Discharge Data Discharge Date: 11/25/19 Discharge Disposition: Home, Self-Care 01 Condition: Good - Referral to Home Health Primary Care Physician: Diego Powell MD - Discharge Diagnosis/Problem(s) (1) care SNOMED Code(s): 206027784, 54552002, 132941748, 748058444 ICD Code: Z34.90 - ENCNTR FOR SUPRVSN OF NORMAL , UNSP, UNSP TRIMESTER Status: Acute (2) Drug use affecting SNOMED Code(s): 05711654, 215441987 ICD Code: O99.320 - DRUG USE COMPLICATING , UNSPECIFIED TRIMESTER Status: Acute (3) (normal spontaneous vaginal delivery) SNOMED Code(s): 95346359, 496254622 ICD Code: O80 - ENCOUNTER FOR FULL-TERM UNCOMPLICATED DELIVERY Status: Acute (4) UTI (urinary tract infection) SNOMED Code(s): 16397731 ICD Code: N39.0 - URINARY TRACT INFECTION, SITE NOT SPECIFIED Status: Acute Qualifiers: Urinary tract infection type: site unspecified Hematuria presence: with hematuria Qualified Code(s): N39.0 - Urinary tract infection, site not specified; R31.9 - Hematuria, unspecified - Patient Summary/Data Operative Procedure(s) Performed: None Complications: None Consults: None Labs Pending at D/C: CordStat Drug Screen Recommended Follow-up Testing/Procedures: None Planned Operative Procedure(s) after DC: None Hospital Course: Please see subjective section - Patient Instructions Diet: Usual Diet as Tolerated Activity: As Tolerated, No Lifting Over 20 Pounds Driving: May Drive Today Showering/Bathing: May Shower Notify Provider of: Fever, Increased Pain - Discharge Plan *PRESCRIPTION DRUG MONITORING PROGRAM REVIEWED*: Not Applicable *COPY OF PRESCRIPTION DRUG MONITORING REPORT IN PATIENT ELY: Not Applicable Home Medications: Home Meds Acetaminophen [Tylenol] 650 mg PO Q4H PRN tablet 11/25/19 [Rx] Docusate Sodium [Colace] 100 mg PO BID PRN cap 11/25/19 [Rx] Ibuprofen [Motrin] 800 mg PO Q8H PRN tablet 11/25/19 [Rx] Nitrofurantoin [place]/Macrocryst [Nitrofurantoin [place]-MCR] 100 mg PO BIDMEALS cap 11/25/19 [Rx] Vit with Ca/FA/Iron [ Plus Iron] 1 each PO DAILY tablet [Rx] Patient Handouts: Baby Blues, Care After Vaginal Delivery Referrals: Diego Powell MD [Primary Care Provider] - (6 weeks for routine visit) - Discharge Summary/Plan Comment DC Time >30 min.: No Discharge Summary/Plan Comment: Discharge home today. 6 days of Macrobid 100 mg BID for UTI in addition to routine medication for care. Follow-up in 6-[address] Powell for routine care. Reasons to return to the clinic sooner or to present to the ED were reviewed with the patient, and all questions were answered. - General Info Date of Service: 11/25/19 Subjective Update: PPD#2. Patient is doing well. She reports improvement of her abdominal cramping and back pain. This does still respond well to Tylenol and ibuprofen. Ambulating without dizziness or lightheadedness. Tolerating a general diet. Urinating and passing gas. No fevers, chills, nausea or vomiting. She is bottlefeeding. No concerns per patient or per nursing staff. Functional Status: Reports: Pain Controlled, Tolerating Diet, Ambulating, Urinating. Denies: New Symptoms - Review of Systems General: Reports: No Symptoms HEENT: Reports: No Symptoms Pulmonary: Reports: No Symptoms Cardiovascular: Reports: No Symptoms Gastrointestinal: Reports: No Symptoms Genitourinary: Reports: No Symptoms Musculoskeletal: Reports: No Symptoms, Back Pain Skin: Reports: No Symptoms Neurological: Reports: No Symptoms - Patient Data Vitals - Most Recent: Last Vital Signs Temp 36.7 C 11/25/19 08:00 Pulse 73 11/25/19 08:00 Resp 18 11/25/19 08:00 BP 110/58 L 11/25/19 08:00 Pulse Ox 98 11/25/19 08:00 Weight - Most Recent: 92.079 kg Med Orders - Current: Current Medications Acetaminophen (Tylenol) 650 mg PO Q4H PRN PRN Reason: Pain (Mild 1-3) and fever Benzocaine/Menthol (Dermoplast Pain Relief [place]) 0 gm TOP Q4H PRN PRN Reason: Perineal comfort measures Carboprost Tromethamine (Hemabate Ds) 250 mcg IM ASDIRECTED PRN PRN Reason: HEMORRHAGE Docusate Sodium (Colace) 100 mg PO BID PRN PRN Reason: Constipation Last Admin: 11/25/19 08:50 Dose: 100 mg Fentanyl (Sublimaze) 50 mcg IVPUSH ONETIME PRN PRN Reason: Abdominal Pain Last Admin: 11/23/19 13:34 Dose: 50 mcg Lactated Ringer's (Ringers, Lactated) 1,000 mls @ 125 mls/hr IV ASDIRECTED [facility] Last Infusion: 11/23/19 18:30 Dose: 0 mls/hr Oxytocin/Sodium Chloride (Pitocin In Ns 30 Unit/500 Ml) 30 unit in 500 mls @ 2 mls/hr IV TITRATE [facility]; Protocol Last Titration: 11/23/19 18:32 Dose: 0 munits/min, 0 mls/hr Tranexamic Acid 1,000 mg/ (Sodium Chloride) 110 mls @ 660 mls/hr IV ONETIME PRN PRN Reason: Bleeding Ibuprofen (Motrin) 800 mg PO Q8H PRN PRN Reason: Mild Pain or Fever Last Admin: 11/25/19 08:50 Dose: 800 mg Lidocaine HCl (Xylocaine-Mpf 1%) 30 ml INJECT ASDIRECTED PRN PRN Reason: Perineal Repair Methylergonovine Maleate (Methergine) 0.2 mg IM ASDIRECTED PRN PRN Reason: Hemorrhage Misoprostol (Cytotec) 800 mcg RECTAL ASDIRECTED PRN PRN Reason: Hemorrhage Nitrofurantoin Macrocrystals (Macrobid) 100 mg PO BIDMEALS [facility] Stop: 12/01/19 12:01 Last Admin: 11/25/19 08:50 Dose: 100 mg Ondansetron HCl (Zofran) 4 mg IVPUSH Q4H PRN PRN Reason: Nausea/Vomiting Last Admin: 11/23/19 14:58 Dose: 4 mg Oxytocin (Pitocin) 10 unit IM ONETIME PRN PRN Reason: Bleeding Prenat Multivit/[place]/Iron/Folic Ac ( Plus Iron) 1 each PO DAILY [facility] Last Admin: 11/25/19 08:50 Dose: 1 each Simethicone (Simethicone) 80 mg PO Q4H PRN PRN Reason: Gas Sodium Chloride (Saline Flush) 10 ml FLUSH ASDIRECTED PRN PRN Reason: Keep Vein Open Sodium Chloride (Saline Flush) 10 ml FLUSH ASDIRECTED PRN PRN Reason: Keep Vein Open Zolpidem Tartrate (Ambien) 5 mg PO BEDTIME PRN PRN Reason: Insomnia Discontinued Medications Fentanyl (Sublimaze) Confirm Administered Dose 100 mcg .ROUTE .STK-MED ONE Stop: 11/23/19 14:58 Last Admin: 11/23/19 17:07 Dose: Not Given Lactated Ringer's (Ringers, Lactated) 1,000 mls @ 500 mls/hr IV BOLUS ONE Stop: 11/23/19 14:36 Last Admin: 11/23/19 12:45 Dose: 999 mls/hr Penicillin G Potassium 5 (millunits/ Sodium Chloride) 100 mls @ 200 mls/hr IV ONETIME ONE Stop: 11/23/19 13:14 Last Admin: 11/23/19 12:55 Dose: 200 mls/hr Penicillin G Potassium 3 (millunits/ Sodium Chloride) 100 mls @ 200 mls/hr IV Q4H [facility] Last Admin: 11/23/19 16:11 Dose: 200 mls/hr Nitrofurantoin Macrocrystals (Macrobid) 100 mg PO BIDMEALS [facility] Stop: 12/01/19 18:01 Sodium Bicarbonate (Sodium Bicarbonate 4.2%) Confirm Administered Dose 2.5 meq .ROUTE .STK-MED ONE Stop: 11/23/19 14:59 Last Admin: 11/23/19 17:08 Dose: Not Given Sufentanil Citrate (Sufenta) Confirm Administered Dose 50 mcg .ROUTE .STK-MED ONE Stop: 11/23/19 14:59 Last Admin: 11/23/19 17:08 Dose: Not Given - Exam General: Reports: Alert, Oriented HEENT: Reports: Pupils Reactive Lungs: Reports: Clear to Auscultation, Normal Respiratory Effort Cardiovascular: Reports: Regular Rate, Regular Rhythm, No Murmurs GI/Abdominal Exam: Soft, No Distention Back Exam: Reports: Normal Inspection Skin: Reports: Warm, Dry, Intact Neurological: Reports: No New Focal Deficit
[2019-11-25] MEDS ORDERED: Sodium Bicarbonate 4.2% 2.5 MEQ/5 ML SDV ONE (13:23)
[2019-11-25] MEDS ORDERED: fentaNYL 100 MCG/2 ML SDV ITHECAL ONE (13:23)
--- NOTE | 2019-11-26 11:10 | HP ---
PATIENT IDENTIFICATION: Marge Guadarrama is a 24-year-old, G3, P2-0-0-2, with intrauterine at 39-1/7 weeks, confirmed with 22-3/7 weeks' ultrasound who presents with contractions described as lower abdominal pain and pressure coming every 5 to 8 minutes. Worsening over time, coming more often, time makes them worse. Not associated with any spotting, bleeding, or leaking. To put this in context, she is GBS positive, hepatitis C positive, history of drug use in the past, Rubella immune, and has a history of hemorrhage with retained placenta with her last /delivery. Records called for, reviewed as below, and supplemented by the patient's history. [facility]: ABO blood type O positive, negative antibody. Rubella immune. RPR nonreactive. Negative hepatitis B surface antigen, positive hepatitis C. Negative GC with positive chlamydia and treated at [facility] and negative on 10/29/2019 after treatment. Negative 1 hour GTT at 82 on 07/18/2019. GBS was positive on 10/29/2019 with last hemoglobin 11/20/2019 being 11.6, platelets being 173,000. ALLERGIES: None. MEDICATIONS: vitamins. PAST MEDICAL/PAST SURGICAL HISTORY: Remarkable for history of finger fracture in the past, depression, chlamydia in the past as well as above, UTI in the past, chickenpox as a child, hemorrhage as above requiring banjo curettage and 2 units of packed red blood cells, hepatitis C positive status, and history of drug use with meth and THC per chart review from [facility] for 2018- 2019 . FAMILY HISTORY: Maternal grandmother with breast cancer as well as maternal grandmother with atrial fibrillation. Negative family history of defects, anesthesia problems, bleeding problems, or thyroid disease. SOCIAL HISTORY: Lives in [place] with grandma and sister. No pets. Works at the [employer]. Father of baby is not involved. She denies smoking, alcohol, or drug use currently with last use June 2019 with meth and THC per patient report. REVIEW OF SYSTEMS: Otherwise reviewed fully and felt to be contributory for the above. PHYSICAL EXAMINATION: Vital Signs: Blood pressure 129/86, heart rate 64, temperature 98.3. Appearance: Female who appears stated age, acting appropriate for age, nontoxic appearance. Appearing mildly uncomfortable when she has her contractions/lower abdominal pains and pressures. HEENT: Head is atraumatic. EOMs intact. PERRLA. No scleral icterus. No obvious otorhinorrhea. Mucous membranes moist with poor dentition noted. Neck: No obvious masses or lesions. Lungs: Clear to auscultation bilaterally. No increased work of breathing. Heart: S1, S2. Regular rate and rhythm. Abdomen: Gravid. Robert's indeterminate. Nontender, nondistended. Bowel sounds positive. No organomegaly, pulsatile masses, or obvious hernias. No rebound, rigidity, or guarding. Monitors applied. Genitourinary: Normal external female genitalia. Normal position and presentation of the urethra. Vaginal exam reveals her to be 5+ cm, 80% to 90% effaced, negative 1 station, vertex suspected, and bulging bag of water noted. NST was found to be reactive and reassuring with heart tone baseline around the 120 to 130 range. Tocometer reveals contractions 5 to 8 minutes apart at times. ASSESSMENT: 1. Intrauterine at 39-1/7 weeks, confirmed with 22-3/7 weeks' ultrasound. 2. Active labor with contractions and cervical change. 3. Group B Streptococcus positive status. We will start penicillin stat. 4. Hepatitis C positive status. We will discuss treatment , and will need to be tested around 18 to 24 months of age, sooner if need be. 5. History of drug use as above. We will do urine drug screen now. 6. History of hemorrhage, retained placenta with last . We will follow closely. 7. Positive chlamydia during this , treated, negative on 10/29/2019. 8. Rubella immune. 9. G3, P2-0-0-2. PLAN: The patient will be admitted and start penicillin stat. Follow clinically and closely thereafter. Plans were discussed with the patient, and she understands and agrees with the above treatment plan. [facility] /[id number]
--- NOTE | 2019-11-26 11:34 | PN ---
DATE: 11/23/2019 SUBJECTIVE: The patient's contractions are getting stronger. OBJECTIVE: Genitourinary: On tocometer, it is difficult to discern where contractions are. heart tones are in the 140s. Vaginal exam reveals her to be 7+-8 cm. Artificial rupture of membranes done after discussion with the patient yielding copious amounts of clear fluid. ASSESSMENT AND PLAN: Intrauterine at 39 and 1/7 weeks, confirmed at 22 and 3/7 weeks ultrasound, GBS positive, antibiotics given, hepatitis C positive status, as well as history of drug use in the past with history of hemorrhage with retained placenta with previous and positive chlamydia during this treated and negative on 10/29/2019 in a G3, P2-0-0-2. PLAN: We will continue to follow clinically and closely at this point in time. If she needs something for pain, 50 mcg of fentanyl will be given, and we will continue to follow closely at this point in time. Nitrous oxide has been set up as well as room set up now as advancing cervical dilation and rapid labor. [facility] /[id number]
--- NOTE | 2019-11-26 13:36 | PN ---
DATE: 11/23/2019 SUBJECTIVE: The patient is comfortable now status post intrathecal. OBJECTIVE: Vital Signs: Last blood pressure 96/53, heart rate 77. heart tones in the 120s with what appears to be variable decelerations down to the 90s region with last contraction. Genitourinary: Vaginal exam reveals her to be 8 cm, 90% effaced, negative 1 station, vertex suspected. ASSESSMENT: Nearing second stage of labor now status post intrathecal. Intrauterine at 39-1/7 weeks, confirmed with 22-3/7 weeks ultrasound. Admitted in active labor with a group B Streptococcus positive status and antibiotics given as well as history of hepatitis C positive status. History of hemorrhage with retained placenta with last delivery and positive chlamydia and treated and negative during this with last test 10/29/2019 being negative. PLAN: We will continue to follow clinically and closely. We will follow contraction, maternal- status. May need to add Pitocin if need be to continue with contractions, but we will follow closely at this point in time. [facility] /[id number]
--- NOTE | 2019-11-26 13:39 | DEL ---
DATE: 11/23/2019 PREOPERATIVE DIAGNOSES: 1. Intrauterine at 39 and 1/7 weeks, confirmed with 22 and 3/7 weeks ultrasound. 2. Active labor with contractions and cervical change. 3. GBS positive, 2 doses of antibiotics given. 4. Hepatitis C positive. 5. History of drug use. Negative urine drug screen upon admission. 6. Rubella immune. 7. History of hemorrhage with retained placenta with last delivery. 8. Positive chlamydia in the treated and negative on 10/29/2019. 9. G3, P2-0-0-2. POSTOPERATIVE DIAGNOSES: 1. Intrauterine at 39 and 1/7 weeks, confirmed with 22 and 3/7 weeks ultrasound-delivered. 2. Active labor with contractions and cervical change. 3. GBS positive, 2 doses of antibiotics given. 4. Hepatitis C positive. 5. History of drug use. Negative urine drug screen upon admission. 6. Rubella immune. 7. History of hemorrhage with retained placenta with last delivery. 8. Positive chlamydia in that treated and negative on 10/29/2019. 9. G3, P2-0-0-2. PROCEDURES PERFORMED: NST, artificial rupture of membranes, Pitocin augmentation and then subsequent spontaneous vaginal delivery on 11/23/[address] Powell. ANESTHESIA/ANALGESIA: The patient did receive an intrathecal in the first stage of labor. ESTIMATED BLOOD LOSS: 200 mL. FINDINGS: Female. score and weight pending. SUMMARY OF EVENTS: The patient is a 24-year-old G3, P2-0-0-2, intrauterine at 39 and 1/7 weeks admitted in active labor with contractions and cervical change. She was given penicillin stat. Due to her advanced cervical dilation upon admission, underwent the above procedures with Pitocin augmentation and an intrathecal in the first stage of labor. She was subsequently found to be complete and there were variable decelerations noted. She started pushing with contraction and with approximately 2 contractions, vertex was delivered in a ETIENNE presentation followed by rest of the infant without difficulty. Mouth and nares suctioned. Cord was doubly clamped and cut. Infant was resuscitated on mother's abdomen. Approximately 10 mL of cord blood obtained for labs. Placenta then delivered with gentle cord traction and fundal massage. Bleeding was minimal at that point in time. Firm uterus was noted. Perineum, vagina and perirectal areas were then examined without any tears or lacerations. Mother and are currently stable time at the time of dictation. [facility] /[id number]
== END 2019-11-25 13:24 | disposition home or self-care (01) | DRG 807 ==
LOC: DL.OBCHECK 11:45 → DL.OB 12:37 → OBSVTOIN 16:21 → DL.OB 16:21
PROVIDERS: ADMIT Family Medicine; ATTEND Family Medicine
PROC: 10E0XZZ Delivery of Products of Conception, External Approach (ICD-10-PCS; principal; 2019-11-23)
PROC: 3E0R3BZ Introduction of Anesthetic Agent into Spinal Canal, Percutaneous Approach (ICD-10-PCS; 2019-11-23)
PROC: 00HU33Z Insertion of Infusion Device into Spinal Canal, Percutaneous Approach (ICD-10-PCS; 2019-11-23)
DX: O99.824 Streptococcus B carrier state complicating childbirth (principal); Z37.0 Single live birth; Z3A.39 39 weeks gestation of pregnancy; O76 Abnormality in fetal heart rate and rhythm complicating labor and delivery; Z28.82 Immunization not carried out because of caregiver refusal; O86.20 Urinary tract infection following delivery, unspecified
CPT/HCPCS: 36415; 59025; 59409; 80305-QW; 81001; 85027; A9270-GY; J2405; J2540; J2590; J3010; J7050; J7120

== ENCOUNTER 2025-02-04 23:36 | Emergency (ER) | payer MEDICAID, OTHER ==
[2025-02-05 00:15] LABS: APPEARANCE,URINE CLEAR (CLEAR); BILIRUBIN,URINE NEGATIVE (NEGATIVE); COLOR,URINE YELLOW (YELLOW); GLUCOSE,URINE NEGATIVE (NEGATIVE); KETONES,URINE NEGATIVE (NEGATIVE); LEUKOCYTE ESTERASE,URINE NEGATIVE (NEGATIVE); NITRITE,URINE NEGATIVE (NEGATIVE); OCCULT BLOOD,URINE NEGATIVE (NEGATIVE); PROTEIN,URINE NEGATIVE (NEGATIVE)
[2025-02-05] MEDS: Ibuprofen 600 MG Tab PO ONE (00:32)
[2025-02-05 00:38] VITALS: BP 110/70; PULSE 80
== END 2025-02-05 00:36 | disposition home or self-care (01) ==
LOC: DL.ED 23:36
DX: F10.10 Alcohol abuse, uncomplicated (principal); F17.200 Nicotine dependence, unspecified, uncomplicated
CPT/HCPCS: 81003; 81025; 99283; 99284; A9270